=== PATIENT | female | born 1985 | race Two or more races ===

== ENCOUNTER 2016-11-22 11:42 | Inpatient (IN) | payer OTHER ==
[~2016-11-22] VITALS: Ht 162.6 cm; Wt 72.6 kg
[2016-11-22] VITALS (7 sets, daily range): BP systolic 105–129; BP diastolic 53–65
[2016-11-22] MEDS ORDERED: METFORMIN HCL1000 M1 ORAL (11:53)
[2016-11-22] MEDS ORDERED: GLIPIZIDE5 MG ORAL (11:53)
--- NOTE | 2016-11-22 12:06 | Emergency Room Report ---
History of Present Illness General Chief Complaint: General Complaint Source: Patient Present Illness HPI Patient presents with complaints of right-sided flank pain and increased dehydration Patient reports that she felt very weak over the past several days she has had increased burning with urination Patient reports that she has not taken her diabetic medications which include only pills over the past 6 months and has not been checking her glucose Denies any lower abdominal pain Denies any neck pain or photophobia Allergies: Coded Allergies: AMOXICILLIN (Verified Allergy, Unknown, 11/22/16) Patient History Past Medical History: see triage record Pertinent Family History: none Last Menstrual Period: 11/20/16 Reviewed Nursing Documentation: PMH: Agreed, PSxH: Agreed Nursing Documentation-PMH Past Medical History: No History, Except For Hx Diabetes: Yes Review of Systems All Other Systems: negative except mentioned in HPI Physical Exam Vital Signs Date Time Temp Pulse Resp B/P (MAP) Pulse Ox O2 Delivery O2 Flow Rate FiO2 11/22/16 11:49 100.0 128 19 110/68 98 Room Air Sp02 EP Interpretation: reviewed, normal General Appearance: mild distress - appears uncomfortable Head: normocephalic, atraumatic Eyes: bilateral eye PERRL, bilateral eye EOMI ENT: hearing grossly normal, TMs + canals normal, uvula midline, dry mucus membranes Neck: full range of motion, supple, no meningismus, no bony tend Respiratory: lungs clear, normal breath sounds, no rhonchi, no respiratory distress, no retraction, no accessory muscle use Cardiovascular #1: normal peripheral pulses, no edema, no gallop, no JVD, no murmur, tachycardia Gastrointestinal: normal bowel sounds, non tender, soft, no mass, no organomegaly, non-distended, no guarding, no hernia, no pulsatile mass, no rebound Genitourinary: CVA tenderness (R) Musculoskeletal: normal inspection Neurologic: oriented x3, responsive, corporate strategist III-XII nml as tested, motor strength/ tone normal, sensory intact Psychiatric: mood/affect normal Skin: normal color, no rash, warm/dry, palpation normal Lymphatic: normal inspection, no adenopathy Medical Decision Making Diagnostic Impression: Primary Impression: UTI (urinary tract infection) Additional Impressions: Sepsis Hyperglycemia ER Course Multiple differentials including but not limited to pyelonephritis, DKA, hyperglycemia without DKA considered Patient has aggressive IV hydration performed Antibiotics are provided Patient also was provided with IV insulin Patient does not show any obvious signs of acidosis therefore drip has not been performed Patient however is complex with source of infection and uncontrolled diabetes Tachycardic and consideration for sepsis and requires inpatient admission Labs Test 11/22/16 09:30 11/22/16 12:50 11/22/16 16:30 11/22/16 22:05 White Blood Count 18.9 K/UL (4.8-10.8) Red Blood Count 5.29 M/UL (4.20-5.40) Hemoglobin 15.7 G/DL (12.0-16.0) Hematocrit 47.5 % (37.0-47.0) Mean Corpuscular Volume 90 FL (80-99) Mean Corpuscular Hemoglobin 29.7 PG (27.0-31.0) Mean Corpuscular Hemoglobin Concent 33.1 G/DL (32.0-36.0) Red Cell Distribution Width 11.3 % (11.6-14.8) Platelet Count 352 K/UL (150-450) Mean Platelet Volume 7.6 FL (6.5-10.1) Neutrophils (%) (Auto) % (45.0-75.0) Lymphocytes (%) (Auto) % (20.0-45.0) Monocytes (%) (Auto) % (1.0-10.0) Eosinophils (%) (Auto) % (0.0-3.0) Basophils (%) (Auto) % (0.0-2.0) Differential Total Cells Counted 100 Neutrophils % (Manual) 86 % (45-75) Lymphocytes % (Manual) 7 % (20-45) Monocytes % (Manual) 6 % (1-10) Eosinophils % (Manual) 0 % (0-3) Basophils % (Manual) 1 % (0-2) Band Neutrophils 0 % (0-8) Platelet Estimate Adequate Platelet Morphology Normal Sodium Level 130 mEQ/L (135-145) Potassium Level 4.3 mEQ/L (3.4-4.9) Chloride Level 85 mEQ/L (98-107) Carbon Dioxide Level 24 mEQ/L (20-30) Anion Gap 21 (5-15) Blood Urea Nitrogen 10 mg/dL (7-23) Creatinine 0.9 mg/dL (0.5-0.9) Estimat Glomerular Filtration Rate > 60 mL/min (>60) Glucose Level 528 mg/dL (74-106) 563 mg/dL (74-106) Lactic Acid Level 2.00 mmol/L (0.66-2.22) 1.50 mmol/L (0.66-2.22) Calcium Level 9.9 mg/dL (8.6-10.2) Urine Color Pale yellow Urine Appearance Very cloudy Urine pH 5 (4.5-8.0) Urine Specific [place] 1.005 (1.005-1.035) Urine Protein 2+ (NEGATIVE) Urine Glucose (UA) 4+ (NEGATIVE) Urine Ketones 4+ (NEGATIVE) Urine Occult Blood 5+ (NEGATIVE) Urine Nitrite Negative (NEGATIVE) Urine Bilirubin Negative (NEGATIVE) Urine Urobilinogen Normal MG/DL (0.0-1.0) Urine Leukocyte Esterase 3+ (NEGATIVE) Urine RBC 10-15 /HPF (0 - 2) Urine WBC 40-60 /HPF (0 - 2) Urine Squamous Epithelial Cells Few /LPF (NONE/OCC) Urine Bacteria Few /HPF (NONE) Urine Yeast Few /HPF (NONE) Urine HCG, Qualitative Negative Test 11/23/16 02:00 11/23/16 04:20 White Blood Count 15.4 K/UL (4.8-10.8) Red Blood Count 4.34 M/UL (4.20-5.40) Hemoglobin 12.7 G/DL (12.0-16.0) Hematocrit 38.2 % (37.0-47.0) Mean Corpuscular Volume 88 FL (80-99) Mean Corpuscular Hemoglobin 29.3 PG (27.0-31.0) Mean Corpuscular Hemoglobin Concent 33.2 G/DL (32.0-36.0) Red Cell Distribution Width 11.4 % (11.6-14.8) Platelet Count 275 K/UL (150-450) Mean Platelet Volume 8.1 FL (6.5-10.1) Neutrophils (%) (Auto) 82.9 % (45.0-75.0) Lymphocytes (%) (Auto) 7.6 % (20.0-45.0) Monocytes (%) (Auto) 8.8 % (1.0-10.0) Eosinophils (%) (Auto) 0.0 % (0.0-3.0) Basophils (%) (Auto) 0.6 % (0.0-2.0) Lactic Acid Level 1.00 mmol/L (0.66-2.22) Urine Color Pale yellow Urine Appearance Cloudy Urine pH 6 (4.5-8.0) Urine Specific [place] 1.015 (1.005-1.035) Urine Protein 2+ (NEGATIVE) Urine Glucose (UA) 4+ (NEGATIVE) Urine Ketones 4+ (NEGATIVE) Urine Occult Blood 5+ (NEGATIVE) Urine Nitrite Negative (NEGATIVE) Urine Bilirubin Negative (NEGATIVE) Urine Urobilinogen 1 MG/DL (0.0-1.0) Urine Leukocyte Esterase 3+ (NEGATIVE) Urine RBC 15-20 /HPF (0 - 2) Urine WBC Tntc /HPF (0 - 2) Urine Squamous Epithelial Cells Few /LPF (NONE/OCC) Urine Bacteria Few /HPF (NONE) Labs Test 11/22/16 09:30 11/22/16 12:50 White Blood Count 18.9 K/UL (4.8-10.8) Red Blood Count 5.29 M/UL (4.20-5.40) Hemoglobin 15.7 G/DL (12.0-16.0) Hematocrit 47.5 % (37.0-47.0) Mean Corpuscular Volume 90 FL (80-99) Mean Corpuscular Hemoglobin 29.7 PG (27.0-31.0) Mean Corpuscular Hemoglobin Concent 33.1 G/DL (32.0-36.0) Red Cell Distribution Width 11.3 % (11.6-14.8) Platelet Count 352 K/UL (150-450) Mean Platelet Volume 7.6 FL (6.5-10.1) Neutrophils (%) (Auto) % (45.0-75.0) Lymphocytes (%) (Auto) % (20.0-45.0) Monocytes (%) (Auto) % (1.0-10.0) Eosinophils (%) (Auto) % (0.0-3.0) Basophils (%) (Auto) % (0.0-2.0) Sodium Level 130 mEQ/L (135-145) Potassium Level 4.3 mEQ/L (3.4-4.9) Chloride Level 85 mEQ/L (98-107) Carbon Dioxide Level 24 mEQ/L (20-30) Anion Gap 21 (5-15) Blood Urea Nitrogen 10 mg/dL (7-23) Creatinine 0.9 mg/dL (0.5-0.9) Estimat Glomerular Filtration Rate > 60 mL/min (>60) Glucose Level 528 mg/dL (74-106) Calcium Level 9.9 mg/dL (8.6-10.2) Rhythm Strip Diag. Results EP Interpretation: yes Rate: 115 Rhythm: no PVC's, no ectopy, other - sinus tach Last Vital Signs Date Time Temp Pulse Resp B/P (MAP) Pulse Ox O2 Delivery O2 Flow Rate FiO2 11/22/16 11:49 100.0 128 19 110/68 98 Room Air Status: improved Disposition: ADMITTED INPATIENT Condition: Serious STEPHANIE SILVA D.O. Nov 22, 2016 12:06
[2016-11-22] MEDS ORDERED: Ketorolac 30mg Inj IV ONE (12:15)
[2016-11-22 12:41] LABS: MEAN CORPUSCULAR HEMOGLOBIN 29.7 PG (27.0-31.0); MEAN CORPUSCULAR HGB CONC 33.1 G/DL (32.0-36.0); MEAN CORPUSCULAR VOLUME 90 FL (80-99); MEAN PLATELET VOLUME 7.6 FL (6.5-10.1); PLATELET COUNT 352 K/UL (150-450); RED BLOOD COUNT 5.29 M/UL (4.20-5.40); RED CELL DISTRIBUTION WIDTH 11.3 % (11.6-14.8); WHITE BLOOD COUNT 18.9 K/UL (4.8-10.8)
[2016-11-22 13:04] LABS: ANION GAP 21 (5-15); CALCIUM 9.9 mg/dL (8.6-10.2); CARBON DIOXIDE 24 mEQ/L (20-30); CHLORIDE 85 mEQ/L (98-107); CREATININE 0.9 mg/dL (0.5-0.9); GLOMERULAR FILTRATION RATE > 60 mL/min (>60); HEMOLYSIS 1; POTASSIUM 4.3 mEQ/L (3.4-4.9); SODIUM 130 mEQ/L (135-145)
[2016-11-22] MEDS ORDERED: Clindamycin 600mg 50 ML IVPB ONE (13:15)
[2016-11-22 14:11] LABS: APPEARANCE,URINE VERY CLOUDY; KETONES,URINE 4+ (NEGATIVE); LEUKOCYTE ESTERASE ,URINE 3+ (NEGATIVE); NITRITE,URINE NEGATIVE (NEGATIVE); PH,URINE 5 (4.5-8.0); PROTEIN,URINE 2+ (NEGATIVE); UROBILINOGEN,URINE NORMAL MG/DL (0.0-1.0)
[2016-11-22 14:15] LABS: BACTERIA,URINE FEW /HPF; SQUAMOUS EPITHELIAL CELL,UR FEW /LPF (NONE/OCC); WBC,URINE 40-60 /HPF (0 - 2); YEAST,URINE FEW /HPF
[2016-11-22 14:36] LABS: BAND NEUTROPHILS % (MANUAL) 0 % (0-8); BASOPHILS % (MANUAL) 1 % (0-2); EOSINOPHILS % (MANUAL) 0 % (0-3); LYMPHOCYTES % (MANUAL) 7 % (20-45); NEUTROPHILS % (MANUAL) 86 % (45-75); PLATELET ESTIMATE ADEQUATE; PLATELET MORPHOLOGY NORMAL; TOTAL CELLS COUNTED 100
[2016-11-22] MEDS ORDERED: Acetaminophen 500mg (ES) tab ORAL ONE (15:00)
[2016-11-22] MEDS ORDERED: Bactrim DS (160mg/800mg) tab ORAL ONE (15:00)
[2016-11-22 15:56] LABS: REFLEX LACTIC ACID YES OR NO YES
[2016-11-22] MEDS: Morphine Sulfate 2mg/ml Inj IVP PRN (20:17)
[2016-11-22] MEDS: NovoLOG Insulin Flexpen SUBQ SCH (21:46)
[2016-11-22] MEDS ORDERED: Levemir Flexpen SUBQ SCH (23:30)
[2016-11-23] VITALS (7 sets, daily range): BP systolic 117–141; BP diastolic 65–77
[2016-11-23 02:14] LABS: BASOPHILS % (AUTO) 0.6 % (0.0-2.0); LYMPHOCYTES % (AUTO) 7.6 % (20.0-45.0); MEAN CORPUSCULAR HEMOGLOBIN 29.3 PG (27.0-31.0); MEAN CORPUSCULAR HGB CONC 33.2 G/DL (32.0-36.0); MEAN CORPUSCULAR VOLUME 88 FL (80-99); MEAN PLATELET VOLUME 8.1 FL (6.5-10.1); MONOCYTES % (AUTO) 8.8 % (1.0-10.0); NEUTROPHILS % (AUTO) 82.9 % (45.0-75.0); PLATELET COUNT 275 K/UL (150-450); RED BLOOD COUNT 4.34 M/UL (4.20-5.40); RED CELL DISTRIBUTION WIDTH 11.4 % (11.6-14.8); WHITE BLOOD COUNT 15.4 K/UL (4.8-10.8)
[2016-11-23 05:01] LABS: KETONES,URINE 4+ (NEGATIVE); LEUKOCYTE ESTERASE ,URINE 3+ (NEGATIVE); NITRITE,URINE NEGATIVE (NEGATIVE); PH,URINE 6 (4.5-8.0); PROTEIN,URINE 2+ (NEGATIVE); UROBILINOGEN,URINE 1 MG/DL (0.0-1.0)
[2016-11-23 05:13] LABS: APPEARANCE,URINE CLOUDY
[2016-11-23 05:14] LABS: BACTERIA,URINE FEW /HPF; RBC,URINE 15-20 /HPF (0 - 2); SQUAMOUS EPITHELIAL CELL,UR FEW /LPF (NONE/OCC); WBC,URINE TNTC /HPF (0 - 2)
[2016-11-23] MEDS: NovoLOG Insulin Flexpen SUBQ SCH ×4 (06:48→21:24)
[2016-11-23] MEDS: Morphine Sulfate 2mg/ml Inj IVP PRN ×4 (08:36→23:21)
[2016-11-23] MEDS ORDERED: Levemir Flexpen SUBQ SCH (09:00)
[2016-11-23 10:42] LABS: BASOPHILS % (AUTO) 0.5 % (0.0-2.0); LYMPHOCYTES % (AUTO) 9.8 % (20.0-45.0); MEAN CORPUSCULAR HEMOGLOBIN 29.5 PG (27.0-31.0); MEAN CORPUSCULAR HGB CONC 33.1 G/DL (32.0-36.0); MEAN CORPUSCULAR VOLUME 89 FL (80-99); MEAN PLATELET VOLUME 7.7 FL (6.5-10.1); NEUTROPHILS % (AUTO) 82.6 % (45.0-75.0); PLATELET COUNT 296 K/UL (150-450); RED BLOOD COUNT 4.38 M/UL (4.20-5.40); RED CELL DISTRIBUTION WIDTH 11.2 % (11.6-14.8); WHITE BLOOD COUNT 14.2 K/UL (4.8-10.8)
[2016-11-23 10:57] LABS: ANION GAP 13 (5-15); CALCIUM 8.3 mg/dL (8.6-10.2); CARBON DIOXIDE 22 mEQ/L (20-30); CHLORIDE 94 mEQ/L (98-107); CREATININE 0.7 mg/dL (0.5-0.9); GLOMERULAR FILTRATION RATE > 60 mL/min (>60); HEMOLYSIS 0; SODIUM 129 mEQ/L (135-145)
[2016-11-23] MEDS: Aztreonam Inj 1 GM in D5W 55 ML IVPB SCH ×2 (13:21→21:58)
--- NOTE | 2016-11-23 13:23 | Infectious Diseases Prog Note ---
Assessment/Plan Problems: (1) Pyelonephritis Assessment & Plan: continue aztreonam, pending blood culture results (2) Sepsis Assessment & Plan: with gram negative rods, on aztreonam , pending identification and sensitivity (3) Hyperglycemia Assessment & Plan: due to sepsis, recommend tight glycemic control to keep blood glucose between 80-120 Subjective Allergies: Coded Allergies: AMOXICILLIN (Verified Allergy, Unknown, 11/22/16) Objective Vital Signs Last 24 Hour Vital Signs Date Time Temp Pulse Resp B/P (MAP) Pulse Ox O2 Delivery O2 Flow Rate FiO2 11/23/16 12:00 98.4 124 21 141/73 97 Room Air 11/23/16 08:00 116 11/23/16 08:00 101.5 120 20 121/67 98 Room Air 11/23/16 04:00 100.9 120 18 126/65 96 Room Air 11/23/16 03:47 116 11/23/16 01:30 101.8 Room Air 11/23/16 00:00 103.1 129 18 136/67 96 Room Air 11/22/16 23:50 131 11/22/16 20:00 100.0 116 20 118/64 94 Room Air 11/22/16 19:05 110 11/22/16 17:36 99.5 62 18 118/62 99 Room Air 11/22/16 17:15 117 20 110/58 100 Room Air 11/22/16 16:01 100.4 118 16 127/63 100 Room Air 11/22/16 16:01 100.4 11/22/16 15:26 102.4 118 16 127/63 100 Room Air 11/22/16 14:47 101.4 113 20 129/65 98 Room Air Height (Feet): 5 Height (Inches): 4.00 Weight (Pounds): 160 Microbiology Date/Time Source Procedure Growth Status 11/22/16 09:30 Blood Blood Culture - Preliminary Gram Negative [place] Resulted 11/22/16 09:30 Blood Blood Culture - Preliminary Gram Negative [place] Resulted 11/22/16 12:50 Urine,Clean Catch Urine Culture - Preliminary Resulted Laboratory Tests Test 11/22/16 16:30 11/22/16 22:05 11/23/16 02:00 11/23/16 04:20 Lactic Acid Level 1.50 mmol/L (0.66-2.22) 1.00 mmol/L (0.66-2.22) Glucose Level 563 mg/dL (74-106) *H White Blood Count 15.4 K/UL (4.8-10.8) H Red Blood Count 4.34 M/UL (4.20-5.40) Hemoglobin 12.7 G/DL (12.0-16.0) Hematocrit 38.2 % (37.0-47.0) Mean Corpuscular Volume 88 FL (80-99) Mean Corpuscular Hemoglobin 29.3 PG (27.0-31.0) Mean Corpuscular Hemoglobin Concent 33.2 G/DL (32.0-36.0) Red Cell Distribution Width 11.4 % (11.6-14.8) L Platelet Count 275 K/UL (150-450) Mean Platelet Volume 8.1 FL (6.5-10.1) Neutrophils (%) (Auto) 82.9 % (45.0-75.0) H Lymphocytes (%) (Auto) 7.6 % (20.0-45.0) L Monocytes (%) (Auto) 8.8 % (1.0-10.0) Eosinophils (%) (Auto) 0.0 % (0.0-3.0) Basophils (%) (Auto) 0.6 % (0.0-2.0) Urine Color Pale yellow Urine Appearance Cloudy Urine pH 6 (4.5-8.0) Urine Specific [place] 1.015 (1.005-1.035) Urine Protein 2+ (NEGATIVE) H Urine Glucose (UA) 4+ (NEGATIVE) H Urine Ketones 4+ (NEGATIVE) H Urine Occult Blood 5+ (NEGATIVE) H Urine Nitrite Negative (NEGATIVE) Urine Bilirubin Negative (NEGATIVE) Urine Urobilinogen 1 MG/DL (0.0-1.0) H Urine Leukocyte Esterase 3+ (NEGATIVE) H Urine RBC 15-20 /HPF (0 - 2) H Urine WBC Tntc /HPF (0 - 2) H Urine Squamous Epithelial Cells Few /LPF (NONE/OCC) Urine Bacteria Few /HPF (NONE) Test 11/23/16 10:05 White Blood Count 14.2 K/UL (4.8-10.8) H Red Blood Count 4.38 M/UL (4.20-5.40) Hemoglobin 12.9 G/DL (12.0-16.0) Hematocrit 39.0 % (37.0-47.0) Mean Corpuscular Volume 89 FL (80-99) Mean Corpuscular Hemoglobin 29.5 PG (27.0-31.0) Mean Corpuscular Hemoglobin Concent 33.1 G/DL (32.0-36.0) Red Cell Distribution Width 11.2 % (11.6-14.8) L Platelet Count 296 K/UL (150-450) Mean Platelet Volume 7.7 FL (6.5-10.1) Neutrophils (%) (Auto) 82.6 % (45.0-75.0) H Lymphocytes (%) (Auto) 9.8 % (20.0-45.0) L Monocytes (%) (Auto) 7.0 % (1.0-10.0) Eosinophils (%) (Auto) 0.0 % (0.0-3.0) Basophils (%) (Auto) 0.5 % (0.0-2.0) Sodium Level 129 mEQ/L (135-145) L Potassium Level 4.0 mEQ/L (3.4-4.9) Chloride Level 94 mEQ/L (98-107) L Carbon Dioxide Level 22 mEQ/L (20-30) Anion Gap 13 (5-15) Blood Urea Nitrogen 11 mg/dL (7-23) Creatinine 0.7 mg/dL (0.5-0.9) Estimat Glomerular Filtration Rate > 60 mL/min (>60) Glucose Level 395 mg/dL (74-106) #H Calcium Level 8.3 mg/dL (8.6-10.2) L Current Medications Medications (Trade) Dose Ordered Sig/Brisa Route PRN Reason Start Time Stop Time Status Last Admin Dose Admin Acetaminophen (Tylenol) 500 mg Q6H PRN ORAL Mild Pain/Temp > 100.5 11/23/16 11:00 12/23/16 10:59 Aztreonam 1 gm/ Dextrose 55 ml @ 110 mls/hr Q8HR IVPB 11/23/16 14:00 11/30/16 13:59 Dextrose (Dextrose 50%) STAT PRN IV Hypoglycemia 11/22/16 18:30 12/22/16 18:29 Insulin Aspart (NovoLOG) BEFORE MEALS AND HS SUBQ 9/30/17 21:00 12/22/16 20:59 11/23/16 12:13 Insulin Detemir (Levemir) 15 units BID SUBQ 11/23/16 18:00 12/23/16 17:59 Morphine Sulfate (Morphine Sulfate) 2 mg Q4H PRN IVP Severe Pain (Pain Scale 7-10) 11/22/16 18:30 11/29/16 18:29 11/23/16 08:36 Ondansetron HCl (Zofran) 4 mg Q6H PRN IVP Nausea & Vomiting 11/22/16 18:30 12/22/16 18:29 Sodium Chloride 1,000 ml @ 100 mls/hr Q10H IVLG 11/22/16 18:45 12/22/16 18:44 11/23/16 06:38 Jeanie Borjas M.D. Nov 23, 2016 13:23
[2016-11-23] MEDS ORDERED: Tubing IV Secondary IV ONE (15:38)
[2016-11-23] MEDS: Levemir Flexpen SUBQ SCH (18:00)
[2016-11-23] MEDS: Acetaminophen 500mg (ES) tab ORAL PRN (21:19)
--- NOTE | 2016-11-23 22:45 | Consultation ---
DATE OF CONSULTATION: INFECTIOUS DISEASES CONSULTATION CONSULTING PHYSICIAN: Jeanie Borjas M.D. REQUESTING PHYSICIAN: Tylor Singh M.D. Reason For Consultation: Sepsis and acute pyelonephritis with gram-negative rods. Recommendation for antibiotics treatment. History Of Present Illness: The patient is a 31-year-old female with no significant past medical history except poorly controlled diabetes, who stopped taking her oral diabetes medicine for couple of weeks ago since she ran out of them, presented to the emergency room at [facility] with significant right-sided flank pain and fever with chills. She had also dysuria, but no hematuria. She had noticed increased burning with urination, so she was directed to the emergency room for further evaluation and management. In the emergency room, the patient was found to have fever of 100 degrees. She also had significant leukocytosis suspicious for sepsis. Urinalysis showed also significant infection, suspicious for pyelonephritis. So, I was consulted by the primary provider for antibiotics choice since she has allergy to penicillin and further management. Past Medical History: Significant for poorly controlled diabetes, not on any oral medication. PAST SURGICAL HISTORY: Negative. Medications: The patient was started on aztreonam. For the rest of her medications, please refer to MAR. Allergies: She is allergic to amoxicillin since childhood. She does not know what kind of reaction she has. Social History: The patient lives with her . Unemployed. No recent drugs, tobacco, or alcohol. FAMILY HISTORY: Not contributory. Review Of Systems: A 14-point of system reviewed were all negative apart from the one I mentioned above in my History and Physical. PHYSICAL EXAMINATION: Vital Signs: Temperature 101.5 degrees, pulse 120, respirations 20, blood pressure 121/67, and saturation 98% on room air. General: A young female, lying in bed, feeling hot, awake, alert, not in distress, at the bedside. HEENT: Normocephalic and atraumatic. Pupils are reactive to light. Moist oral mucosa. NECK: Supple. No lymphadenopathy. CARDIOVASCULAR: She is tachycardic. S1 and S2 normal. No murmur. Lungs: Clear bilaterally. No wheezing or rhonchi. Normal breathing sounds. Abdomen: Soft. Tender on the right side, mainly in the flank area. No rebound. No organomegaly. No ascites. EXTREMITIES: No edema or cyanosis. SKIN: No rash or hives. BACK: She had right CVA tenderness. Laboratory Data: Labs showed white count of 14.2, hemoglobin of 12.9, and platelet count of 296,000. BUN of 11 and creatinine of 0.7. Urinalysis showed negative nitrite, leukocyte esterase +3, WBC 40 to 60, and few urine yeast. MICROBIOLOGY: Blood culture x2 is growing gram-negative rods. ASSESSMENT/RECOMMENDATIONS: 1. Acute pyelonephritis. Continue aztreonam empiric treatment for now pending blood culture and urine culture results. We will order renal ultrasound to rule out abscess or obstruction. 2. Sepsis with gram-negative rods, suspect due to pyelonephritis. Continue aztreonam empiric treatment pending identification and sensitivity. 3. Hyperglycemia due to poorly controlled diabetes and sepsis. Recommend tight glycemic control to keep blood glucose between 80 to 120. 4. Diabetes, poorly controlled. Recommend counseling and dietitian consultation. Jeanie Borjas M.D. DR: TONY JOB#: [id number] CC:
--- NOTE | 2016-11-23 23:47 | History and Physical ---
History of Present Illness General Date patient seen: Nov 23, 2016 Reason for Hospitalization: General Complaint Present Illness Allergies: Coded Allergies: AMOXICILLIN (Verified Allergy, Unknown, 11/22/16) Medication History Scheduled Glipizide* (Glipizide*), 5 MG ORAL BIDAC, (Reported) Metformin Hcl* (Metformin Hcl*), 1,000 MG ORAL BID, (Reported) Patient History Healthcare decision maker Resuscitation status Full Code Advanced Directive on File Physical Exam Last 24 Hour Vital Signs Date Time Temp Pulse Resp B/P (MAP) Pulse Ox O2 Delivery O2 Flow Rate FiO2 11/23/16 23:06 99.1 93 20 117/74 99 Room Air 11/23/16 22:18 97.7 11/23/16 20:00 101.7 117 20 137/77 95 Room Air 11/23/16 19:00 125 11/23/16 16:00 114 11/23/16 16:00 98.6 110 21 120/69 97 Room Air 11/23/16 12:00 98.4 124 21 141/73 97 Room Air 11/23/16 12:00 122 11/23/16 08:00 116 11/23/16 08:00 101.5 120 20 121/67 98 Room Air 11/23/16 04:00 100.9 120 18 126/65 96 Room Air 11/23/16 03:47 116 11/23/16 01:30 101.8 Room Air 11/23/16 00:00 103.1 129 18 136/67 96 Room Air 11/22/16 23:50 131 Intake and Output 11/23/16 11/24/16 19:00 07:00 Intake Total 1210 ml 300 ml Balance 1210 ml 300 ml Intake Oral 600 ml IV Total 610 ml 300 ml # Voids 1 Laboratory Tests Test 11/23/16 02:00 11/23/16 04:20 11/23/16 10:05 White Blood Count 15.4 K/UL (4.8-10.8) H 14.2 K/UL (4.8-10.8) H Red Blood Count 4.34 M/UL (4.20-5.40) 4.38 M/UL (4.20-5.40) Hemoglobin 12.7 G/DL (12.0-16.0) 12.9 G/DL (12.0-16.0) Hematocrit 38.2 % (37.0-47.0) 39.0 % (37.0-47.0) Mean Corpuscular Volume 88 FL (80-99) 89 FL (80-99) Mean Corpuscular Hemoglobin 29.3 PG (27.0-31.0) 29.5 PG (27.0-31.0) Mean Corpuscular Hemoglobin Concent 33.2 G/DL (32.0-36.0) 33.1 G/DL (32.0-36.0) Red Cell Distribution Width 11.4 % (11.6-14.8) L 11.2 % (11.6-14.8) L Platelet Count 275 K/UL (150-450) 296 K/UL (150-450) Mean Platelet Volume 8.1 FL (6.5-10.1) 7.7 FL (6.5-10.1) Neutrophils (%) (Auto) 82.9 % (45.0-75.0) H 82.6 % (45.0-75.0) H Lymphocytes (%) (Auto) 7.6 % (20.0-45.0) L 9.8 % (20.0-45.0) L Monocytes (%) (Auto) 8.8 % (1.0-10.0) 7.0 % (1.0-10.0) Eosinophils (%) (Auto) 0.0 % (0.0-3.0) 0.0 % (0.0-3.0) Basophils (%) (Auto) 0.6 % (0.0-2.0) 0.5 % (0.0-2.0) Lactic Acid Level 1.00 mmol/L (0.66-2.22) Urine Color Pale yellow Urine Appearance Cloudy Urine pH 6 (4.5-8.0) Urine Specific [place] 1.015 (1.005-1.035) Urine Protein 2+ (NEGATIVE) H Urine Glucose (UA) 4+ (NEGATIVE) H Urine Ketones 4+ (NEGATIVE) H Urine Occult Blood 5+ (NEGATIVE) H Urine Nitrite Negative (NEGATIVE) Urine Bilirubin Negative (NEGATIVE) Urine Urobilinogen 1 MG/DL (0.0-1.0) H Urine Leukocyte Esterase 3+ (NEGATIVE) H Urine RBC 15-20 /HPF (0 - 2) H Urine WBC Tntc /HPF (0 - 2) H Urine Squamous Epithelial Cells Few /LPF (NONE/OCC) Urine Bacteria Few /HPF (NONE) Sodium Level 129 mEQ/L (135-145) L Potassium Level 4.0 mEQ/L (3.4-4.9) Chloride Level 94 mEQ/L (98-107) L Carbon Dioxide Level 22 mEQ/L (20-30) Anion Gap 13 (5-15) Blood Urea Nitrogen 11 mg/dL (7-23) Creatinine 0.7 mg/dL (0.5-0.9) Estimat Glomerular Filtration Rate > 60 mL/min (>60) Glucose Level 395 mg/dL (74-106) #H Calcium Level 8.3 mg/dL (8.6-10.2) L Height (Feet): 5 Height (Inches): 4.00 Weight (Pounds): 160 Medications Current Medications Medications (Trade) Dose Ordered Sig/Brisa Route PRN Reason Start Time Stop Time Status Last Admin Dose Admin Acetaminophen (Tylenol) 500 mg Q6H PRN ORAL Mild Pain/Temp > 100.5 11/23/16 11:00 12/23/16 10:59 11/23/16 21:19 Aztreonam 1 gm/ Dextrose 55 ml @ 110 mls/hr Q8HR IVPB 11/23/16 14:00 11/30/16 13:59 11/23/16 21:58 Dextrose (Dextrose 50%) STAT PRN IV Hypoglycemia 11/22/16 18:30 12/22/16 18:29 Insulin Aspart (NovoLOG) BEFORE MEALS AND HS SUBQ 11/22/16 21:00 12/22/16 20:59 11/23/16 21:24 Insulin Detemir (Levemir) 15 units BID SUBQ 11/23/16 18:00 12/23/16 17:59 11/23/16 18:00 Morphine Sulfate (Morphine Sulfate) 2 mg Q4H PRN IVP Severe Pain (Pain Scale 7-10) 11/22/16 18:30 11/29/16 18:29 11/23/16 23:21 Ondansetron HCl (Zofran) 4 mg Q6H PRN IVP Nausea & Vomiting 11/22/16 18:30 12/22/16 18:29 Sodium Chloride 1,000 ml @ 100 mls/hr Q10H IVLG 11/22/16 18:45 12/22/16 18:44 11/23/16 21:52 JAQUI VELASCO Nov 23, 2016 23:47
[2016-11-24 04:29] VITALS: BP 117/76
[2016-11-24] MEDS: Aztreonam Inj 1 GM in D5W 55 ML IVPB SCH ×3 (05:48→22:10)
[2016-11-24] MEDS: Morphine Sulfate 2mg/ml Inj IVP PRN ×4 (05:48→20:06)
[2016-11-24] MEDS: NovoLOG Insulin Flexpen SUBQ SCH ×4 (06:07→21:00)
[2016-11-24 08:00] VITALS: BP 116/79
[2016-11-24] MEDS: Levemir Flexpen SUBQ SCH ×2 (08:31→18:28)
[2016-11-24] MEDS ORDERED: NS 275ml ONE (10:18)
[2016-11-24] MEDS ORDERED: Tubing IV Secondary IV ONE (10:18)
[2016-11-24] MEDS ORDERED: Flu Vaccine Quadrivalent 0.5ml IM ONE (11:40)
[2016-11-24 12:00] VITALS: BP 136/84
[2016-11-24] MEDS: Docusate 100mg cap ORAL SCH ×2 (13:54→18:19)
[2016-11-24 16:00] VITALS: BP 124/79
--- NOTE | 2016-11-24 17:10 | Infectious Diseases Prog Note ---
Assessment/Plan Problems: (1) Pyelonephritis Assessment & Plan: with gram negative rods, continue aztreonam, pending further culture results (2) Sepsis Assessment & Plan: with gram negative rods, due to the above , on aztreonam , pending identification and sensitivity (3) Hyperglycemia Assessment & Plan: due to sepsis, recommend tight glycemic control to keep blood glucose between 80-120 Subjective Constitutional: Reports: fever HEENT: Reports: no symptoms Respiratory: Reports: no symptoms Breasts: Reports: no symptoms Gastrointestinal/Abdominal: Reports: other - flank pain Genitourinary: Reports: no symptoms Neurologic: Reports: no symptoms Psychiatric: Reports: no symptoms Skin: Reports: no symptoms Endocrine: Reports: no symptoms Allergies: Coded Allergies: AMOXICILLIN (Verified Allergy, Unknown, 11/22/16) Objective Vital Signs Last 24 Hour Vital Signs Date Time Temp Pulse Resp B/P (MAP) Pulse Ox O2 Delivery O2 Flow Rate FiO2 11/24/16 16:00 101.1 94 19 124/79 99 Room Air 11/24/16 12:00 112 11/24/16 12:00 99.0 96 19 136/84 97 Room Air 11/24/16 08:00 118 11/24/16 08:00 98.6 91 20 116/79 98 Room Air 11/24/16 04:29 98.6 89 20 117/76 100 Room Air 11/24/16 04:13 87 11/23/16 23:39 84 11/23/16 23:06 99.1 93 20 117/74 99 Room Air 11/23/16 22:18 97.7 11/23/16 20:00 101.7 117 20 137/77 95 Room Air 11/23/16 19:00 125 Height (Feet): 5 Height (Inches): 4.00 Weight (Pounds): 160 General Appearance: WD/WN, no acute distress HEENT: normocephalic, atraumatic, anicteric, mucous membranes moist Respiratory/Chest: chest wall non-tender, lungs clear, normal breath sounds, no respiratory distress, no accessory muscle use Cardiovascular: normal peripheral pulses, normal rate, regular rhythm, no gallop/murmur, no JVD Abdomen: normal bowel sounds, no organomegaly, non distended, no mass, tender Extremities: no cyanosis, no clubbing Skin: no rash, no lesions Microbiology Date/Time Source Procedure Growth Status 11/23/16 02:00 Blood Blood Culture - Preliminary Resulted 11/23/16 01:50 Blood Blood Culture - Preliminary Resulted 11/22/16 09:30 Blood Blood Culture - Preliminary Gram Negative Bacillus 1 Resulted 11/22/16 09:30 Blood Blood Culture - Preliminary Gram Negative Bacillus 1 Resulted 11/23/16 04:20 Urine,Clean Catch Urine Culture - Preliminary NO GROWTH Resulted 11/22/16 12:50 Urine,Clean Catch Urine Culture - Preliminary Gram Negative Bacillus 1 Gram Negative Bacillus 2 Resulted Current Medications Medications (Trade) Dose Ordered Sig/Brisa Route PRN Reason Start Time Stop Time Status Last Admin Dose Admin Acetaminophen (Tylenol) 500 mg Q6H PRN ORAL Mild Pain/Temp > 100.5 11/23/16 11:00 12/23/16 10:59 11/23/16 21:19 Aztreonam 1 gm/ Dextrose 55 ml @ 110 mls/hr Q8HR IVPB 11/23/16 14:00 11/30/16 13:59 11/24/16 13:02 Dextrose (Dextrose 50%) STAT PRN IV Hypoglycemia 11/22/16 18:30 12/22/16 18:29 Docusate Sodium (Colace) 100 mg TWICE A DAY ORAL 11/24/16 13:45 12/24/16 13:44 11/24/16 13:54 Insulin Aspart (NovoLOG) BEFORE MEALS AND HS SUBQ 11/22/16 21:00 12/22/16 20:59 11/24/16 17:06 Insulin Detemir (Levemir) 15 units BID SUBQ 11/23/16 18:00 12/23/16 17:59 11/24/16 08:31 Morphine Sulfate (Morphine Sulfate) 2 mg Q4H PRN IVP Severe Pain (Pain Scale 7-10) 11/22/16 18:30 11/29/16 18:29 11/24/16 15:16 Ondansetron HCl (Zofran) 4 mg Q6H PRN IVP Nausea & Vomiting 11/22/16 18:30 12/22/16 18:29 Sodium Chloride 1,000 ml @ 100 mls/hr Q10H IVLG 11/22/16 18:45 12/22/16 18:44 11/24/16 10:45 Jeanie Borjas M.D. Nov 24, 2016 17:10
[2016-11-24] MEDS: Acetaminophen 500mg (ES) tab ORAL PRN (18:59)
[2016-11-24 20:00] VITALS: BP 130/68
--- NOTE | 2016-11-24 22:41 | Nephrology Progress Note ---
Assessment/Plan Problem List: (1) Hyponatremia (2) Hyperglycemia (3) Pyelonephritis (4) Sepsis (5) UTI (urinary tract infection) Plan Abx per ID Strict glycemic control Monitor temp Monitor counts Continue diabetic diet Continue IVF Monitor lytes, correct prn Objective Objective Last 24 Hour Vital Signs Date Time Temp Pulse Resp B/P (MAP) Pulse Ox O2 Delivery O2 Flow Rate FiO2 11/24/16 20:00 100.0 103 20 130/68 95 Room Air 11/24/16 17:44 106 11/24/16 16:00 101.1 94 19 124/79 99 Room Air 11/24/16 12:00 112 11/24/16 12:00 99.0 96 19 136/84 97 Room Air 11/24/16 08:00 118 11/24/16 08:00 98.6 91 20 116/79 98 Room Air 11/24/16 04:29 98.6 89 20 117/76 100 Room Air 11/24/16 04:13 87 11/23/16 23:39 84 11/23/16 23:06 99.1 93 20 117/74 99 Room Air Intake and Output 11/24/16 11/25/16 19:00 07:00 Intake Total 1390 ml Balance 1390 ml Intake Oral 780 ml IV Total 610 ml # Voids 5 # Bowel Movements 1 Height (Feet): 5 Height (Inches): 4.00 Weight (Pounds): 160 JAQUI VELASCO Nov 24, 2016 22:41
[2016-11-25] VITALS: BP 131/81
[2016-11-25] MEDS: Morphine Sulfate 2mg/ml Inj IVP PRN ×5 (00:19→18:46)
[2016-11-25 04:00] VITALS: BP 132/79
[2016-11-25] MEDS: Aztreonam Inj 1 GM in D5W 55 ML IVPB SCH ×2 (06:00→14:13)
[2016-11-25] MEDS: NovoLOG Insulin Flexpen SUBQ SCH ×4 (06:39→21:32)
[2016-11-25 08:00] VITALS: BP 137/79
[2016-11-25 08:24] LABS: EOSINOPHILS % (AUTO) 0.4 % (0.0-3.0); LYMPHOCYTES % (AUTO) 20.4 % (20.0-45.0); MEAN CORPUSCULAR HGB CONC 34.2 G/DL (32.0-36.0); MEAN CORPUSCULAR VOLUME 88 FL (80-99); MEAN PLATELET VOLUME 7.9 FL (6.5-10.1); MONOCYTES % (AUTO) 11.2 % (1.0-10.0); NEUTROPHILS % (AUTO) 66.9 % (45.0-75.0); PLATELET COUNT 269 K/UL (150-450); RED CELL DISTRIBUTION WIDTH 11.6 % (11.6-14.8); WHITE BLOOD COUNT 8.4 K/UL (4.8-10.8)
[2016-11-25] MEDS: Levemir Flexpen SUBQ SCH ×3 (08:53→21:29)
[2016-11-25 08:54] LABS: ANION GAP 12 (5-15); CALCIUM 8.2 mg/dL (8.6-10.2); CARBON DIOXIDE 24 mEQ/L (20-30); CHLORIDE 97 mEQ/L (98-107); CREATININE 0.6 mg/dL (0.5-0.9); GLOMERULAR FILTRATION RATE > 60 mL/min (>60); HEMOLYSIS 0; POTASSIUM 4.2 mEQ/L (3.4-4.9); SODIUM 133 mEQ/L (135-145)
[2016-11-25] MEDS: Docusate 100mg cap ORAL SCH ×2 (10:24→18:47)
[2016-11-25 12:00] VITALS: BP 129/56
[2016-11-25 16:00] VITALS: BP 123/46
--- NOTE | 2016-11-25 16:56 | Infectious Diseases Prog Note ---
Assessment/Plan Problems: (1) Pyelonephritis Assessment & Plan: with pansensitive E coli, will switch aztreonam to ceftriaxon , and treat for 2 weeks (2) Sepsis Assessment & Plan: with pansensitive E coli, , due to the above , on aztreonam , will switch to ceftriaxon for two weeks, and repeat blood culture to confirm clearance (3) Hyperglycemia Assessment & Plan: due to sepsis, recommend tight glycemic control to keep blood glucose between 80-120 Subjective Constitutional: Reports: no symptoms HEENT: Reports: no symptoms Respiratory: Reports: no symptoms Breasts: Reports: no symptoms Cardiovascular: Reports: no symptoms Gastrointestinal/Abdominal: Reports: no symptoms Genitourinary: Reports: no symptoms Neurologic: Reports: no symptoms Psychiatric: Reports: no symptoms Skin: Reports: no symptoms Endocrine: Reports: no symptoms Allergies: Coded Allergies: AMOXICILLIN (Verified Allergy, Unknown, 11/22/16) Objective Vital Signs Last 24 Hour Vital Signs Date Time Temp Pulse Resp B/P (MAP) Pulse Ox O2 Delivery O2 Flow Rate FiO2 11/25/16 12:00 96.8 93 20 129/56 98 Room Air 11/25/16 12:00 94 11/25/16 08:00 98.2 94 21 137/79 97 Room Air 11/25/16 08:00 102 11/25/16 08:00 102 11/25/16 05:04 98.0 11/25/16 04:00 98.0 93 20 132/79 97 Room Air 11/25/16 04:00 98 11/25/16 00:00 98.8 95 20 131/81 97 Room Air 11/25/16 00:00 98 11/24/16 20:00 100.0 103 20 130/68 95 Room Air 11/24/16 20:00 96 11/24/16 19:58 100.0 11/24/16 17:44 106 Height (Feet): 5 Height (Inches): 4.00 Weight (Pounds): 160 General Appearance: WD/WN, no acute distress HEENT: normocephalic, atraumatic, anicteric, mucous membranes moist Respiratory/Chest: chest wall non-tender, lungs clear, normal breath sounds, no respiratory distress, no accessory muscle use Cardiovascular: normal peripheral pulses, normal rate, regular rhythm, no gallop/murmur, no JVD Abdomen: normal bowel sounds, soft, non tender, no organomegaly, non distended , no mass, no scars Extremities: no cyanosis, no clubbing Skin: no rash, no lesions, no ulcers Microbiology Date/Time Source Procedure Growth Status 11/23/16 02:00 Blood Blood Culture - Preliminary Gram Negative Bacillus 1 Resulted 11/23/16 01:50 Blood Blood Culture - Preliminary Gram Negative Bacillus 1 Resulted 11/23/16 04:20 Urine,Clean Catch Urine Culture - Preliminary Mixed Gram Positive Organism Resulted Laboratory Tests Test 11/25/16 07:40 White Blood Count 8.4 K/UL (4.8-10.8) Red Blood Count 3.80 M/UL (4.20-5.40) L Hemoglobin 11.4 G/DL (12.0-16.0) L Hematocrit 33.4 % (37.0-47.0) L Mean Corpuscular Volume 88 FL (80-99) Mean Corpuscular Hemoglobin 30.0 PG (27.0-31.0) Mean Corpuscular Hemoglobin Concent 34.2 G/DL (32.0-36.0) Red Cell Distribution Width 11.6 % (11.6-14.8) Platelet Count 269 K/UL (150-450) Mean Platelet Volume 7.9 FL (6.5-10.1) Neutrophils (%) (Auto) 66.9 % (45.0-75.0) Lymphocytes (%) (Auto) 20.4 % (20.0-45.0) Monocytes (%) (Auto) 11.2 % (1.0-10.0) H Eosinophils (%) (Auto) 0.4 % (0.0-3.0) Basophils (%) (Auto) 1.0 % (0.0-2.0) Sodium Level 133 mEQ/L (135-145) L Potassium Level 4.2 mEQ/L (3.4-4.9) Chloride Level 97 mEQ/L (98-107) L Carbon Dioxide Level 24 mEQ/L (20-30) Anion Gap 12 (5-15) Blood Urea Nitrogen 9 mg/dL (7-23) Creatinine 0.6 mg/dL (0.5-0.9) Estimat Glomerular Filtration Rate > 60 mL/min (>60) Glucose Level 300 mg/dL (74-106) H Calcium Level 8.2 mg/dL (8.6-10.2) L Thyroid Stimulating Hormone (TSH) 1.060 uIU/mL (0.300-4.500) Current Medications Medications (Trade) Dose Ordered Sig/Brisa Route PRN Reason Start Time Stop Time Status Last Admin Dose Admin Acetaminophen (Tylenol) 500 mg Q6H PRN ORAL Mild Pain/Temp > 100.5 11/23/16 11:00 12/23/16 10:59 11/24/16 18:59 Aztreonam 1 gm/ Dextrose 55 ml @ 110 mls/hr Q8HR IVPB 11/23/16 14:00 11/30/16 13:59 11/25/16 14:13 Dextrose (Dextrose 50%) STAT PRN IV Hypoglycemia 11/22/16 18:30 12/22/16 18:29 Docusate Sodium (Colace) 100 mg TWICE A DAY ORAL 11/24/16 13:45 12/24/16 13:44 11/25/16 10:24 Insulin Aspart (NovoLOG) BEFORE MEALS AND HS SUBQ 11/22/16 21:00 12/22/16 20:59 11/25/16 12:35 Insulin Detemir (Levemir) 15 units BID SUBQ 11/23/16 18:00 12/23/16 17:59 11/25/16 08:53 Morphine Sulfate (Morphine Sulfate) 2 mg Q4H PRN IVP Severe Pain (Pain Scale 7-10) 11/22/16 18:30 11/29/16 18:29 11/25/16 14:14 Ondansetron HCl (Zofran) 4 mg Q6H PRN IVP Nausea & Vomiting 11/22/16 18:30 12/22/16 18:29 Pantoprazole (Protonix) 40 mg DAILY ORAL 11/25/16 09:00 12/25/16 08:59 11/25/16 10:23 Sodium Chloride 1,000 ml @ 100 mls/hr Q10H IVLG 11/22/16 18:45 12/22/16 18:44 11/23/16 08:44 Jeanie Borjas M.D. Nov 25, 2016 16:56
[2016-11-25] MEDS: cefTRIAXone 2 GM in D5W 110 ML IVPB SCH (18:42)
[2016-11-25 20:00] VITALS: BP 137/76
[2016-11-26] VITALS: BP 121/79
[2016-11-26 04:00] VITALS: BP 120/81
[2016-11-26] MEDS: Morphine Sulfate 2mg/ml Inj IVP PRN ×4 (08:15→20:49)
[2016-11-26 08:17] VITALS: BP 115/72
[2016-11-26] MEDS: NovoLOG Insulin Flexpen SUBQ SCH ×5 (08:18→22:54)
[2016-11-26] MEDS: Docusate 100mg cap ORAL SCH ×2 (08:19→18:54)
[2016-11-26 11:24] VITALS: BP 123/78
--- NOTE | 2016-11-26 12:29 | Diagnostic Imaging Report ---
Indication:Elevated Bun and Creatinine. Technique: Grayscale and duplex Doppler imaging of the kidneys performed. Comparison: None Findings: The size, contour, and echogenicity of both kidneys are within normal limits. There are probable tiny cysts within the right kidney. The right kidney measures approximately 13 CM. Left kidney is 12.6 CM. There is no hydronephrosis. The IVC and urinary bladder are unremarkable. Impression: Small cysts suspected within the right kidney. Negative exam otherwise
[2016-11-26 15:18] VITALS: BP 121/79
--- NOTE | 2016-11-26 15:30 | Infectious Diseases Prog Note ---
Assessment/Plan Problems: (1) Pyelonephritis Assessment & Plan: with pansensitive E coli, will treat with ceftriaxon for 2 weeks, total, EOT 12/09/16 (2) Sepsis Assessment & Plan: with pansensitive E coli, , due to the above , on ceftriaxon for two weeks, repeated blood culture to confirm clearance is pending, EOT 12/09/16 (3) Hyperglycemia Assessment & Plan: due to sepsis, recommend tight glycemic control to keep blood glucose between 80-120 Subjective Constitutional: Reports: no symptoms HEENT: Reports: no symptoms Respiratory: Reports: no symptoms Breasts: Reports: no symptoms Cardiovascular: Reports: no symptoms Gastrointestinal/Abdominal: Reports: no symptoms Genitourinary: Reports: no symptoms Neurologic: Reports: no symptoms Psychiatric: Reports: no symptoms Skin: Reports: no symptoms Endocrine: Reports: no symptoms Hematologic: Reports: no symptoms Allergies: Coded Allergies: AMOXICILLIN (Verified Allergy, Unknown, 11/22/16) Objective Vital Signs Last 24 Hour Vital Signs Date Time Temp Pulse Resp B/P (MAP) Pulse Ox O2 Delivery O2 Flow Rate FiO2 11/26/16 15:18 98.2 87 18 121/79 99 Room Air 11/26/16 12:00 85 11/26/16 11:24 98.2 78 18 123/78 99 Room Air 11/26/16 08:17 99.5 86 18 115/72 100 Room Air 11/26/16 08:00 88 11/26/16 06:50 91 11/26/16 04:00 97.5 98 21 120/81 97 Room Air 11/26/16 00:00 98.6 101 20 121/79 96 Room Air 11/25/16 20:00 100 11/25/16 20:00 99.5 102 24 137/76 96 Room Air 11/25/16 16:00 99.5 94 21 123/46 97 Room Air 11/25/16 16:00 95 Height (Feet): 5 Height (Inches): 4.00 Weight (Pounds): 160 General Appearance: WD/WN, no acute distress HEENT: normocephalic, atraumatic, anicteric, mucous membranes moist, PERRL, EOMI, pharynx normal, supple, no JVD Respiratory/Chest: chest wall non-tender, lungs clear, normal breath sounds, no respiratory distress, no accessory muscle use Cardiovascular: normal peripheral pulses, normal rate, regular rhythm, no gallop/murmur, no JVD Abdomen: normal bowel sounds, soft, non tender, no organomegaly, non distended , no mass Extremities: no cyanosis, no clubbing Skin: no rash, no lesions Neurologic/Psychiatric: alert, oriented x 3, responsive Current Medications Medications (Trade) Dose Ordered Sig/Brisa Route PRN Reason Start Time Stop Time Status Last Admin Dose Admin Acetaminophen (Tylenol) 500 mg Q6H PRN ORAL Mild Pain/Temp > 100.5 11/23/16 11:00 12/23/16 10:59 11/24/16 18:59 Ceftriaxone Sodium 2 gm/ Dextrose 110 ml @ 220 mls/hr Q24H IVPB 11/25/16 18:00 12/02/16 17:59 11/25/16 18:42 Dextrose (Dextrose 50%) STAT PRN IV Hypoglycemia 11/22/16 18:30 12/22/16 18:29 Docusate Sodium (Colace) 100 mg TWICE A DAY ORAL 11/24/16 13:45 12/24/16 13:44 11/26/16 08:19 Insulin Aspart (NovoLOG) BEFORE MEALS AND HS SUBQ 11/22/16 21:00 12/22/16 20:59 11/26/16 12:30 Insulin Detemir (Levemir) 15 units BID SUBQ 11/23/16 18:00 12/23/16 17:59 11/25/16 21:29 Morphine Sulfate (Morphine Sulfate) 2 mg Q4H PRN IVP Severe Pain (Pain Scale 7-10) 11/22/16 18:30 11/29/16 18:29 11/26/16 12:23 Ondansetron HCl (Zofran) 4 mg Q6H PRN IVP Nausea & Vomiting 11/22/16 18:30 12/22/16 18:29 Pantoprazole (Protonix) 40 mg DAILY ORAL 11/25/16 09:00 12/25/16 08:59 11/26/16 08:18 Sodium Chloride 1,000 ml @ 100 mls/hr Q10H IVLG 11/22/16 18:45 12/22/16 18:44 11/26/16 12:23 Jeanie Borjas M.D. Nov 26, 2016 15:30
--- NOTE | 2016-11-26 15:38 | Nephrology Progress Note ---
Assessment/Plan Problem List: (1) Hyperglycemia (2) Pyelonephritis (3) Sepsis (4) UTI (urinary tract infection) Plan Abx per ID Strict glycemic control Monitor temp Monitor counts Continue diabetic diet Continue IVF Monitor lytes, correct prn Subjective Constitutional: Denies: no symptoms, chills, diaphoresis, fever, malaise, weakness, other HEENT: Denies: no symptoms, eye pain, blurred vision, tearing, double vision, ear pain, ear discharge, nose pain, nose congestion, throat pain, throat swelling, mouth pain, mouth swelling, other Genitourinary: Denies: no symptoms, burning, discharge, frequency, flank pain, hematuria, incontinence, pain, urgency, other Neurologic/Psychiatric: Denies: no symptoms, anxiety, depressed, emotional problems, headache, numbness, paresthesia, pre-existing deficit, seizure, tingling, tremors, weakness, other Subjective With family, in no apparent distress Objective Objective Last 24 Hour Vital Signs Date Time Temp Pulse Resp B/P (MAP) Pulse Ox O2 Delivery O2 Flow Rate FiO2 11/26/16 15:18 98.2 87 18 121/79 99 Room Air 11/26/16 12:00 85 11/26/16 11:24 98.2 78 18 123/78 99 Room Air 11/26/16 08:17 99.5 86 18 115/72 100 Room Air 11/26/16 08:00 88 11/26/16 06:50 91 11/26/16 04:00 97.5 98 21 120/81 97 Room Air 11/26/16 00:00 98.6 101 20 121/79 96 Room Air 11/25/16 20:00 100 11/25/16 20:00 99.5 102 24 137/76 96 Room Air 11/25/16 16:00 99.5 94 21 123/46 97 Room Air 11/25/16 16:00 95 Intake and Output 11/26/16 11/27/16 19:00 07:00 Intake Total 690 ml Balance 690 ml Intake Oral 690 ml # Voids 8 Height (Feet): 5 Height (Inches): 4.00 Weight (Pounds): 160 General Appearance: no apparent distress EENT: normal ENT inspection Neck: normal alignment, supple Cardiovascular: normal rate, regular rhythm, no JVD Respiratory/Chest: normal breath sounds, no respiratory distress Abdomen: soft, no organomegaly Extremities: non-tender, normal inspection Neurologic: alert, oriented x 3, responsive, normal mood/affect Tracy Birmingham N.P. Nov 26, 2016 15:38
[2016-11-26] MEDS: cefTRIAXone 2 GM in D5W 110 ML IVPB SCH (18:54)
[2016-11-26] MEDS: Levemir Flexpen SUBQ SCH (18:59)
[2016-11-26 20:00] VITALS: BP 134/78
[2016-11-26] MEDS: Heparin 5000 units/ml inj SUBQ SCH (20:52)
[2016-11-27 00:09] VITALS: BP 106/77
[2016-11-27 00:12] VITALS: BP 133/75
[2016-11-27] MEDS: Morphine Sulfate 2mg/ml Inj IVP PRN (02:20)
[2016-11-27 04:00] VITALS: BP 116/77
[2016-11-27] MEDS: NovoLOG Insulin Flexpen SUBQ SCH ×4 (07:26→12:54)
[2016-11-27 08:04] VITALS: BP 135/70
[2016-11-27 08:15] LABS: BASOPHILS % (AUTO) 1.5 % (0.0-2.0); EOSINOPHILS % (AUTO) 1.6 % (0.0-3.0); LYMPHOCYTES % (AUTO) 22.8 % (20.0-45.0); MEAN CORPUSCULAR HEMOGLOBIN 28.2 PG (27.0-31.0); MEAN CORPUSCULAR HGB CONC 30.7 G/DL (32.0-36.0); MEAN CORPUSCULAR VOLUME 92 FL (80-99); MEAN PLATELET VOLUME 6.8 FL (6.5-10.1); MONOCYTES % (AUTO) 8.7 % (1.0-10.0); NEUTROPHILS % (AUTO) 65.4 % (45.0-75.0); PLATELET COUNT 384 K/UL (150-450); RED BLOOD COUNT 3.98 M/UL (4.20-5.40); RED CELL DISTRIBUTION WIDTH 11.9 % (11.6-14.8); WHITE BLOOD COUNT 9.4 K/UL (4.8-10.8)
[2016-11-27] MEDS: Docusate 100mg cap ORAL SCH (08:33)
[2016-11-27] MEDS: Heparin 5000 units/ml inj SUBQ SCH (08:35)
[2016-11-27 08:45] LABS: ANION GAP 11 (5-15); CALCIUM 8.8 mg/dL (8.6-10.2); CARBON DIOXIDE 27 mEQ/L (20-30); CHLORIDE 103 mEQ/L (98-107); CREATININE 0.6 mg/dL (0.5-0.9); GLOMERULAR FILTRATION RATE > 60 mL/min (>60); HEMOLYSIS 0; POTASSIUM 3.9 mEQ/L (3.4-4.9); SODIUM 141 mEQ/L (135-145)
[2016-11-27] MEDS: Levemir Flexpen SUBQ SCH (08:46)
[2016-11-27 11:42] VITALS: BP 127/84
[2016-11-27] MEDS ORDERED: ROCEPHIN 11 GM/50 ML IVPB (12:19)
[2016-11-27] MEDS ORDERED: CEFTRIAXON2 GM/50 ML IV (12:20)
--- NOTE | 2016-11-27 15:45 | Infectious Diseases Prog Note ---
Assessment/Plan Problems: (1) Pyelonephritis Assessment & Plan: with pansensitive E coli, will treat with ceftriaxon for 2 weeks, total, EOT 12/09/16 (2) Sepsis Assessment & Plan: with pansensitive E coli, , due to the above , on ceftriaxon for two weeks, repeated blood culture to confirm clearance is negative , EOT 12/09/16 (3) Hyperglycemia Assessment & Plan: due to sepsis, recommend tight glycemic control to keep blood glucose between 80-120 Subjective Constitutional: Reports: no symptoms HEENT: Reports: no symptoms Respiratory: Reports: no symptoms Breasts: Reports: no symptoms Cardiovascular: Reports: no symptoms Gastrointestinal/Abdominal: Reports: no symptoms Genitourinary: Reports: no symptoms Neurologic: Reports: no symptoms Psychiatric: Reports: no symptoms Skin: Reports: no symptoms Endocrine: Reports: no symptoms Hematologic: Reports: no symptoms Allergies: Coded Allergies: AMOXICILLIN (Verified Allergy, Unknown, 11/22/16) Objective Vital Signs Last 24 Hour Vital Signs Date Time Temp Pulse Resp B/P (MAP) Pulse Ox O2 Delivery O2 Flow Rate FiO2 11/27/16 12:00 78 11/27/16 11:42 97.5 75 18 127/84 98 Room Air 11/27/16 08:04 96.4 88 18 135/70 100 Room Air 11/27/16 08:00 88 11/27/16 04:00 98.2 87 20 116/77 97 Room Air 11/27/16 04:00 79 11/27/16 00:12 98.2 90 20 133/75 96 Room Air 11/27/16 00:00 84 11/26/16 20:00 85 11/26/16 20:00 97.8 83 20 134/78 97 11/26/16 16:00 94 Height (Feet): 5 Height (Inches): 4.00 Weight (Pounds): 160 General Appearance: WD/WN, no acute distress HEENT: normocephalic, atraumatic, anicteric, mucous membranes moist Respiratory/Chest: chest wall non-tender, lungs clear, normal breath sounds, no respiratory distress, no accessory muscle use Cardiovascular: normal peripheral pulses, normal rate, regular rhythm, no gallop/murmur Abdomen: normal bowel sounds, soft, non tender, no organomegaly, non distended Extremities: no cyanosis, no clubbing Skin: no rash, no lesions, no ulcers Neurologic/Psychiatric: alert, oriented x 3 Musculoskeletal: no effusion Microbiology Date/Time Source Procedure Growth Status 11/25/16 17:20 Blood Blood Culture - Preliminary NO GROWTH AFTER 24 HOURS Resulted 11/25/16 17:15 Blood Blood Culture - Preliminary NO GROWTH AFTER 24 HOURS Resulted Laboratory Tests Test 11/27/16 07:50 White Blood Count 9.4 K/UL (4.8-10.8) Red Blood Count 3.98 M/UL (4.20-5.40) L Hemoglobin 11.2 G/DL (12.0-16.0) L Hematocrit 36.5 % (37.0-47.0) L Mean Corpuscular Volume 92 FL (80-99) Mean Corpuscular Hemoglobin 28.2 PG (27.0-31.0) Mean Corpuscular Hemoglobin Concent 30.7 G/DL (32.0-36.0) L Red Cell Distribution Width 11.9 % (11.6-14.8) Platelet Count 384 K/UL (150-450) Mean Platelet Volume 6.8 FL (6.5-10.1) Neutrophils (%) (Auto) 65.4 % (45.0-75.0) Lymphocytes (%) (Auto) 22.8 % (20.0-45.0) Monocytes (%) (Auto) 8.7 % (1.0-10.0) Eosinophils (%) (Auto) 1.6 % (0.0-3.0) Basophils (%) (Auto) 1.5 % (0.0-2.0) Sodium Level 141 mEQ/L (135-145) Potassium Level 3.9 mEQ/L (3.4-4.9) Chloride Level 103 mEQ/L (98-107) Carbon Dioxide Level 27 mEQ/L (20-30) Anion Gap 11 (5-15) Blood Urea Nitrogen 7 mg/dL (7-23) Creatinine 0.6 mg/dL (0.5-0.9) Estimat Glomerular Filtration Rate > 60 mL/min (>60) Glucose Level 181 mg/dL (74-106) H Calcium Level 8.8 mg/dL (8.6-10.2) Current Medications Medications (Trade) Dose Ordered Sig/Brisa Route PRN Reason Start Time Stop Time Status Last Admin Dose Admin Acetaminophen (Tylenol) 500 mg Q6H PRN ORAL Mild Pain/Temp > 100.5 11/23/16 11:00 12/23/16 10:59 11/24/16 18:59 Ceftriaxone Sodium 2 gm/ Dextrose 110 ml @ 220 mls/hr Q24H IVPB 11/25/16 18:00 12/02/16 17:59 11/26/16 18:54 Dextrose (Dextrose 50%) STAT PRN IV Hypoglycemia 11/22/16 18:30 12/22/16 18:29 Docusate Sodium (Colace) 100 mg TWICE A DAY ORAL 11/24/16 13:45 12/24/16 13:44 11/27/16 08:33 Heparin Sodium (Porcine) (Heparin 5000 units/ml) 5,000 units EVERY 12 HOURS SUBQ 11/26/16 21:00 12/26/16 20:59 11/27/16 08:35 Insulin Aspart (NovoLOG) BEFORE MEALS AND HS SUBQ 11/22/16 21:00 12/22/16 20:59 11/27/16 12:53 Insulin Aspart (NovoLOG) 8 units NOVOTIAC SUBQ 11/26/16 16:50 12/26/16 16:49 11/27/16 12:54 Insulin Detemir (Levemir) 15 units BID SUBQ 11/23/16 18:00 12/23/16 17:59 11/27/16 08:46 Morphine Sulfate (Morphine Sulfate) 2 mg Q4H PRN IVP Severe Pain (Pain Scale 7-10) 11/22/16 18:30 11/29/16 18:29 11/27/16 02:20 Ondansetron HCl (Zofran) 4 mg Q6H PRN IVP Nausea & Vomiting 11/22/16 18:30 12/22/16 18:29 Pantoprazole (Protonix) 40 mg DAILY ORAL 11/25/16 09:00 12/25/16 08:59 11/27/16 08:33 Sodium Chloride 1,000 ml @ 100 mls/hr Q10H IVLG 11/22/16 18:45 12/22/16 18:44 11/26/16 22:45 Jeanie Borjas M.D. Nov 27, 2016 15:45
[2016-11-27 16:00] VITALS: BP 132/88
[2016-11-27] MEDS ORDERED: Tubing IV Secondary IV ONE (17:29)
--- NOTE | 2016-11-28 11:31 | Discharge Summary ---
Discharge Summary Hospital Course Date of Admission Nov 22, 2016 at 14:17 Date of Discharge Nov 27, 2016 at 17:30 Admitting Diagnosis complex pyelonephritis, sepsis HPI Tyrone Quinones is a 31 year old female who was admitted on Nov 22, 2016 at 14: 17 for Complex Pyelonephritis,Sepsis Hospital Course [id number] Discharge Discharge Disposition Patient was discharged to Home with Home Health(06) Discharge Diagnoses: Marisa Malcolm NP Nov 28, 2016 11:31
--- NOTE | 2016-11-28 21:00 | Discharge Summary 2 SIG ---
DATE OF ADMISSION: 11/22/2016 DATE OF DISCHARGE: 11/27/2016 CARTOGRAPHIC TECHNICIAN: Jeanie Borjas M.D. Brief Hospital Course: The patient is a 31-year-old female, who presented to ED complaining of right-sided flank pain with increased dehydration. The patient felt weak over the past several days and had increased burning with urination. She has history of diabetes mellitus and has not taken her medications for several months. On evaluation at ED, glucose was elevated to 526. Lactic acid was 2.0. Anion gap of 21. Urine showed significant infection suspicious for pyelonephritis. She was given aggressive IV hydration and was started on IV antibiotics. She did not present with any obvious sign of acidosis and insulin drip was not started. She was initially tachycardic and suspicion for sepsis was considered. She was then admitted to telemetry for UTI, sepsis, and hyperglycemia. She was seen by Dr. Borjas. The patient is febrile, temperature of 101 degrees. She was given aztreonam empirically. Urine and blood culture showed growth of E. coli. Aztreonam was discontinued and was given ceftriaxone. Blood glucose was monitored. She was placed on diabetic diet with strict glycemic control and NovoLog sliding scale. Glucose improved. Stressed need for medication compliance. Repeat blood culture did not isolate any growth. She was eventually cleared for discharge to continue antibiotic for a total of two weeks. FINAL DIAGNOSES: 1. Sepsis due to pyelonephritis. 2. Pyelonephritis with Escherichia. coli. 3. Hyperglycemia. DISPOSITION: The patient was discharged home with home health. Discharge Medications: Refer to medication list. The patient to continue ceftriaxone 2 g IV daily for 14 days. Tylor Singh M.D. I have been assigned to dictate discharge summary on this account and I was not involved in the patient's management. Marisa Malcolm N.P. DR: MALIK JOB#: [id number] CC: MADDY
--- NOTE | 2016-12-14 17:39 | Cardiology Report ---
APPROVED REPORT EKG Measurement Heart [id number] Sinus tachycardia Nonspecific T wave abnormality Abnormal ECG
== END 2016-11-27 17:30 | disposition home health service (06) | DRG 720 ==
LOC: EMR 12:26 → 2E 14:17 → EDBEDREQ 16:31
DX: A41.9 Sepsis, unspecified organism (principal); E11.65 Type 2 diabetes mellitus with hyperglycemia; N10 Acute pyelonephritis; Z79.84 Long term (current) use of oral hypoglycemic drugs; Z88.1 Allergy status to other antibiotic agents; E86.0 Dehydration; B96.20 Unspecified Escherichia coli [E. coli] as the cause of diseases classified elsewhere; Z23 Encounter for immunization
CPT/HCPCS: 36415; 76775; 80048; 81001; 81003; 81025; 82947; 82962; 83605; 84443; 85007; 85025; 87040; 87086; 87181; 90630; 93005; 99285; G0378; J1815; S0077; S5561

== ENCOUNTER 2017-12-02 11:17 | Emergency (ER) | payer OTHER ==
[~2017-12-02] VITALS: Ht 162.6 cm; Wt 52.6 kg
[~2017-12-02 11:17] MED LIST: CEFTRIAXON2 GM/50 ML IV; GLIPIZIDE5 MG ORAL; METFORMIN HCL1000 M1 ORAL; ROCEPHIN 11 GM/50 ML IVPB
[2017-12-02] MEDS ORDERED: NKM (11:26)
[2017-12-02] MEDS ORDERED: LORazepam Inj 2mg/ml 1ml IV ONE (12:15)
[2017-12-02 12:45] LABS: HEMATOCRIT 46.3 % (37.0-47.0); LYMPHOCYTES % (AUTO) 33.3 % (20.0-45.0); MEAN CORPUSCULAR VOLUME 83 FL (80-99); MONOCYTES % (AUTO) 4.6 % (1.0-10.0); NEUTROPHILS % (AUTO) 60.2 % (45.0-75.0); PLATELET COUNT 304 K/UL (150-450); RED BLOOD COUNT 5.58 M/UL (4.20-5.40); RED CELL DISTRIBUTION WIDTH 11.8 % (11.6-14.8); WHITE BLOOD COUNT 10.1 K/UL (4.8-10.8)
[2017-12-02 12:55] LABS: ANION GAP 9 mmol/L (5-15); BLOOD UREA NITROGEN 8 mg/dL (7-18); CALCIUM 8.7 MG/DL (8.5-10.1); CARBON DIOXIDE 23 MMOL/L (21-32); CHLORIDE 100 MMOL/L (98-107); CREATININE 0.7 MG/DL (0.55-1.30); POTASSIUM 3.6 MMOL/L (3.5-5.1); SODIUM 132 MMOL/L (136-145)
[2017-12-02 13:01] LABS: ALANINE AMINOTRANSFERASE 22 U/L (12-78); ALBUMIN 3.2 G/DL (3.4-5.0); ALKALINE PHOSPHATASE 88 U/L (46-116); ASPARTATE AMINO TRANSFERASE 12 U/L (15-37); BILIRUBIN,TOTAL 0.5 MG/DL (0.2-1.0)
[2017-12-02] MEDS ORDERED: ALPRAZOLAM0.25 MG ORAL (13:22)
[2017-12-02 13:50] VITALS: BP 142/87
--- NOTE | 2017-12-02 14:23 | Emergency Room Report ---
History of Present Illness General Chief Complaint: General Complaint Source: Patient, Medical Record Present Illness HPI 32-year-old female presents ED complaining of shortness of breath, feeling anxious. States symptoms started this morning. Does not know what happened. States she's been under a lot of stress at work. Denies history of panic attacks. Denies alcohol or drug use. Denies chest pain. No other aggravating relieving factors. Denies any other associated symptoms Allergies: Coded Allergies: AMOXICILLIN (Verified Allergy, Unknown, 11/22/16) Patient History Past Medical History: DM Past Surgical History: none Pertinent Family History: none Social History: Denies: smoking, alcohol use, drug use Last Menstrual Period: 10/24/17 Now: No Immunizations: UTD Reviewed Nursing Documentation: PMH: Agreed; PSxH: Agreed Nursing Documentation-PMH Past Medical History: No Stated History Hx Diabetes: Yes Review of Systems All Other Systems: negative except mentioned in HPI Physical Exam Vital Signs Date Time Temp Pulse Resp B/P (MAP) Pulse Ox O2 Delivery O2 Flow Rate FiO2 12/02/17 11:18 97.6 87 20 150/92 100 Room Air 97.5 Sp02 EP Interpretation: reviewed, normal General Appearance: no apparent distress, alert, GCS 15, non-toxic Head: normocephalic, atraumatic Eyes: bilateral eye normal inspection, bilateral eye PERRL ENT: hearing grossly normal, normal pharynx, no angioedema, normal voice Neck: full range of motion, supple/symm/no masses Respiratory: chest non-tender, lungs clear, normal breath sounds, speaking full sentences Cardiovascular #1: regular rate, rhythm, no edema Cardiovascular #2: 2+ carotid (R), 2+ carotid (L), 2+ radial (R), 2+ radial (L) , 2+ dorsalis pedis (R), 2+ dorsalis pedis (L) Gastrointestinal: normal bowel sounds, non tender, soft, non-distended, no guarding, no rebound Rectal: deferred Genitourinary: normal inspection, no CVA tenderness Musculoskeletal: back normal, gait/station normal, normal range of motion, non- tender Neurologic: alert, oriented x3, responsive, motor strength/tone normal, sensory intact, speech normal Psychiatric: judgement/insight normal, memory normal, mood/affect normal, no suicidal/homicidal ideation, anxious Reflexes: 3+ bicep (R), 3+ bicep (L), 3+ tricep (R), 3+ tricep (L), 3+ knee (R) , 3+ knee (L) Skin: normal color, no rash, warm/dry, well hydrated Lymphatic: no adenopathy Medical Decision Making Diagnostic Impression: Primary Impression: Anxiety Additional Impression: Substance abuse ER Course Hospital Course 32 yo F presents with SOB, palpitations Differential diagnoses include: arryhtmia, dehydration, anxiety Clinical course Patient placed on stretcher. on cardiac monitor technician. After initial history and physical I ordered labs, EKG, IVFs and ativan labs reviewed- no leukocytosis, hemoglobin/hematocrit stable, electrolytes ok, Utox + Cocaine EKG - NSR, no acute ischemic changes interpreted by me On reassessment patient feeling better. I discuss the drug screen the patient. Patient denies using cocaine. Patient safe for discharge with close outpatient follow-up I. I feel this is a highly complex case requiring extensive working including EKG/Rhythm strip, Xray/CT/US, Blood/urine lab work, repeat exams while in ED, and administration of strong opiates/narcotics for pain control, admission to hospital or close patient follow up. Diagnosis - anxiety, substance abuse Stable and discharged to home with Rx Xanax. Followup with PMD. Return to ED if symptoms recur or worse Labs Test 12/02/17 12:15 White Blood Count 10.1 K/UL (4.8-10.8) Red Blood Count 5.58 M/UL (4.20-5.40) Hemoglobin 16.0 G/DL (12.0-16.0) Hematocrit 46.3 % (37.0-47.0) Mean Corpuscular Volume 83 FL (80-99) Mean Corpuscular Hemoglobin 28.7 PG (27.0-31.0) Mean Corpuscular Hemoglobin Concent 34.5 G/DL (32.0-36.0) Red Cell Distribution Width 11.8 % (11.6-14.8) Platelet Count 304 K/UL (150-450) Mean Platelet Volume 7.6 FL (6.5-10.1) Neutrophils (%) (Auto) 60.2 % (45.0-75.0) Lymphocytes (%) (Auto) 33.3 % (20.0-45.0) Monocytes (%) (Auto) 4.6 % (1.0-10.0) Eosinophils (%) (Auto) 1.0 % (0.0-3.0) Basophils (%) (Auto) 1.0 % (0.0-2.0) Sodium Level 132 MMOL/L (136-145) Potassium Level 3.6 MMOL/L (3.5-5.1) Chloride Level 100 MMOL/L (98-107) Carbon Dioxide Level 23 MMOL/L (21-32) Anion Gap 9 mmol/L (5-15) Blood Urea Nitrogen 8 mg/dL (7-18) Creatinine 0.7 MG/DL (0.55-1.30) Estimat Glomerular Filtration Rate > 60 mL/min (>60) Glucose Level 419 MG/DL (74-106) Calcium Level 8.7 MG/DL (8.5-10.1) Total Bilirubin 0.5 MG/DL (0.2-1.0) Aspartate Amino Transf (AST/SGOT) 12 U/L (15-37) Alanine Aminotransferase (ALT/SGPT) 22 U/L (12-78) Alkaline Phosphatase 88 U/L (46-116) Total Protein 6.4 G/DL (6.4-8.2) Albumin 3.2 G/DL (3.4-5.0) Globulin 3.2 g/dL Albumin/Globulin Ratio 1.0 (1.0-2.7) Salicylates Level 1.2 ug/mL (2.8-20) Urine Opiates Screen Negative (NEGATIVE) Acetaminophen Level < 2 MCG/ML (10-30) Urine Barbiturates Screen Negative (NEGATIVE) Phencyclidine (PCP) Screen Negative (NEGATIVE) Urine Amphetamines Screen Negative (NEGATIVE) Urine Benzodiazepines Screen Negative (NEGATIVE) Urine Cocaine Screen Positive (NEGATIVE) Urine Marijuana (THC) Screen Negative (NEGATIVE) Serum Alcohol < 3 mg/dL EKG Diagnostic Results Rate: normal Rhythm: NSR ST Segments: no acute changes ASA given to the pt in ED: No Rhythm Strip Diag. Results EP Interpretation: yes Rhythm: NSR, no PVC's, no ectopy Last Vital Signs Date Time Temp Pulse Resp B/P (MAP) Pulse Ox O2 Delivery O2 Flow Rate FiO2 12/02/17 11:18 97.6 87 20 150/92 100 Room Air 97.5 Status: improved Disposition: HOME, SELF-CARE Condition: Stable Scripts Alprazolam* (XANAX*) 0.25 Mg Tablet 0.25 MG ORAL TID PRN for For Anxiety, #15 TAB Prov: Guzman Cox MD 12/02/17 Referrals: NOT CHOSEN [facility]/,REFERRING (PCP) Patient Instructions: Panic Attacks, [id number] Guzman Cox MD Dec 02, 2017 14:23
--- NOTE | 2017-12-06 12:20 | Cardiology Report ---
APPROVED REPORT EKG Measurement Heart [id number] Normal sinus rhythm Nonspecific T wave abnormality Abnormal ECG
== END 2017-12-02 13:55 | disposition home or self-care (01) ==
LOC: EMR 13:40
DX: F41.9 Anxiety disorder, unspecified (principal); F19.10 Other psychoactive substance abuse, uncomplicated; E11.9 Type 2 diabetes mellitus without complications; Z88.0 Allergy status to penicillin
CPT/HCPCS: 36415; 80053; 80307; 85025; 93005; 96361; 96374; 99284; G0480; 80329

== ENCOUNTER 2018-04-25 06:12 | Emergency (ER) | payer OTHER ==
[~2018-04-25] VITALS: Ht 162.6 cm; Wt 71.2 kg
[~2018-04-25 06:12] MED LIST changes: +ALPRAZOLAM0.25 MG ORAL; +NKM
--- NOTE | 2018-04-25 06:30 | NUR ---
ED Nurse Note: Patient presents with complaints of abdominal pain radiating to the back 10/10 with more pain with deep breaths. labs drawn, iv started at left AC 20G.
[2018-04-25 06:45] VITALS: BP 147/81
--- NOTE | 2018-04-25 06:54 | Emergency Room Report ---
History of Present Illness General Chief Complaint: Abdominal Pain Source: Patient Present Illness HPI Patient presents with left upper quadrant abdominal pain ongoing for the past one day Denies any chest pain denies any vomiting or diarrhea Patient tried to drink water at bedside Patient reports that she is a diabetic however has not checked her glucose Denies any focal weakness denies any trauma There is some radiation from the left upper abdomen to the flank region Allergies: Coded Allergies: AMOXICILLIN (Verified Allergy, Unknown, 11/22/16) Patient History Past Medical History: see triage record Pertinent Family History: none Last Menstrual Period: mar Now: No : 3 Para: 3 Reviewed Nursing Documentation: PMH: Agreed; PSxH: Agreed Nursing Documentation-PMH Hx Diabetes: Yes Review of Systems All Other Systems: negative except mentioned in HPI Physical Exam Vital Signs Date Time Temp Pulse Resp B/P (MAP) Pulse Ox O2 Delivery O2 Flow Rate FiO2 04/25/18 06:19 99.1 114 20 147/81 96 Room Air Sp02 EP Interpretation: reviewed, normal General Appearance: mild distress - Patient laying sideways on the bed reports that laying and bending to the left decreases similar discomfort Head: normocephalic, atraumatic Eyes: bilateral eye PERRL, bilateral eye EOMI ENT: hearing grossly normal, normal pharynx, TMs + canals normal, uvula midline Neck: full range of motion, supple, no meningismus, no bony tend Respiratory: lungs clear, normal breath sounds, no rhonchi, no respiratory distress, no retraction, no accessory muscle use Cardiovascular #1: normal peripheral pulses, regular rate, rhythm, no edema, no gallop, no JVD, no murmur Gastrointestinal: normal bowel sounds, non tender, soft, no mass, no organomegaly, non-distended, no guarding, no hernia, no pulsatile mass, no rebound Genitourinary: no CVA tenderness Musculoskeletal: normal inspection Neurologic: oriented x3, responsive, site technician III-XII nml as tested, motor strength/ tone normal, sensory intact Psychiatric: mood/affect normal Skin: normal color, no rash, warm/dry, palpation normal Lymphatic: normal inspection, no adenopathy Medical Decision Making Diagnostic Impression: Primary Impression: Pyelonephritis Additional Impressions: Drug abuse Hyperglycemia ER Course Given the patient's presentation and complaints Accu-Chek was obtained Patient does have an elevated glucose therefore further extensive workup with consideration of DKA, pancreatitis initiated Patient's blood work shows elevated glucose however no obvious DKA patient also showed some evidence of UTI further hydration is provided patient is showing amphetamine positive white blood cell count is elevated raising differentials of possible amphetamine reaction versus pyelonephritis Patient is otherwise afebrile after extensive observation patient is trialed on oral intake is able to do so without any discomfort Patient reports that she is noncompliant with her diabetic medications At this time continues to improve further antibiotics prescribed for home and patient requires improved outpatient care Labs Test 04/25/18 06:35 04/25/18 07:00 White Blood Count 18.4 K/UL (4.8-10.8) Red Blood Count 5.01 M/UL (4.20-5.40) Hemoglobin 14.7 G/DL (12.0-16.0) Hematocrit 43.5 % (37.0-47.0) Mean Corpuscular Volume 87 FL (80-99) Mean Corpuscular Hemoglobin 29.3 PG (27.0-31.0) Mean Corpuscular Hemoglobin Concent 33.7 G/DL (32.0-36.0) Red Cell Distribution Width 11.7 % (11.6-14.8) Platelet Count 335 K/UL (150-450) Mean Platelet Volume 7.7 FL (6.5-10.1) Neutrophils (%) (Auto) % (45.0-75.0) Lymphocytes (%) (Auto) % (20.0-45.0) Monocytes (%) (Auto) % (1.0-10.0) Eosinophils (%) (Auto) % (0.0-3.0) Basophils (%) (Auto) % (0.0-2.0) Differential Total Cells Counted 100 Neutrophils % (Manual) 87 % (45-75) Lymphocytes % (Manual) 7 % (20-45) Monocytes % (Manual) 5 % (1-10) Eosinophils % (Manual) 1 % (0-3) Basophils % (Manual) 0 % (0-2) Band Neutrophils 0 % (0-8) Platelet Estimate Adequate Platelet Morphology Normal Red Blood Cell Morphology Normal Sodium Level 133 MMOL/L (136-145) Potassium Level 3.8 MMOL/L (3.5-5.1) Chloride Level 96 MMOL/L (98-107) Carbon Dioxide Level 28 MMOL/L (21-32) Anion Gap 9 mmol/L (5-15) Blood Urea Nitrogen 10 mg/dL (7-18) Creatinine 0.9 MG/DL (0.55-1.30) Estimat Glomerular Filtration Rate > 60 mL/min (>60) Glucose Level 514 MG/DL (74-106) Calcium Level 9.3 MG/DL (8.5-10.1) Total Bilirubin 0.6 MG/DL (0.2-1.0) Aspartate Amino Transf (AST/SGOT) 13 U/L (15-37) Alanine Aminotransferase (ALT/SGPT) 25 U/L (12-78) Alkaline Phosphatase 101 U/L (46-116) Total Protein 6.9 G/DL (6.4-8.2) Albumin 3.3 G/DL (3.4-5.0) Globulin 3.6 g/dL Albumin/Globulin Ratio 0.9 (1.0-2.7) Lipase 163 U/L (73-393) Urine Color Pale yellow Urine Appearance Clear Urine pH 6.5 (4.5-8.0) Urine Specific [place] 1.005 (1.005-1.035) Urine Protein Negative (NEGATIVE) Urine Glucose (UA) 4+ (NEGATIVE) Urine Ketones Negative (NEGATIVE) Urine Blood 5+ (NEGATIVE) Urine Nitrite Negative (NEGATIVE) Urine Bilirubin Negative (NEGATIVE) Urine Urobilinogen Normal MG/DL (0.0-1.0) Urine Leukocyte Esterase 2+ (NEGATIVE) Urine RBC 2-4 /HPF (0 - 2) Urine WBC 5-10 /HPF (0 - 2) Urine Squamous Epithelial Cells Moderate /LPF (NONE/OCC) Urine Bacteria Few /HPF (NONE) Urine HCG, Qualitative Negative (NEGATIVE) Urine Opiates Screen Negative (NEGATIVE) Urine Barbiturates Screen Negative (NEGATIVE) Phencyclidine (PCP) Screen Negative (NEGATIVE) Urine Amphetamines Screen Positive (NEGATIVE) Urine Benzodiazepines Screen Negative (NEGATIVE) Urine Cocaine Screen Negative (NEGATIVE) Urine Marijuana (THC) Screen Negative (NEGATIVE) Last Vital Signs Date Time Temp Pulse Resp B/P (MAP) Pulse Ox O2 Delivery O2 Flow Rate FiO2 04/25/18 06:45 114 20 Room Air 04/25/18 06:45 99.1 147/81 96 Status: improved Disposition: HOME, SELF-CARE Condition: Improved Scripts Trimethoprim/Sulfamethoxazole 160/800* (BACTRIM DS TABLET*) 1 Each Tablet 1 TAB ORAL Q12H, #20 TAB 0 Refills Prov: Josefa Li DO 04/25/18 Ibuprofen* (MOTRIN*) 600 Mg Tablet 600 MG ORAL Q8H PRN for For Pain, #20 TAB 0 Refills Prov: Josefa Li DO 04/25/18 Referrals: NOT CHOSEN [facility]/MD,REFERRING (PCP) Additional Instructions: Patient is provided with the discharge instructions notified to follow up with primary doctor in the next 2-3 days otherwise return to the er with any worsening symptoms. Please note that this report is being documented using [employer]AG[employer] technology. This can lead to erroneous entry secondary to incorrect interpretation by the dictating instrument. Josefa Li DO Apr 25, 2018 06:54
[2018-04-25] MEDS ORDERED: Insulin Human Regular 100units/ml 3ml IV ONE (07:00)
--- NOTE | 2018-04-25 07:05 | NUR ---
HAND-OFF: Report given to Zara GIRALDO.
[2018-04-25 07:10] LABS: HEMATOCRIT 43.5 % (37.0-47.0); HEMOGLOBIN 14.7 G/DL (12.0-16.0); MEAN CORPUSCULAR VOLUME 87 FL (80-99); PLATELET COUNT 335 K/UL (150-450); RED BLOOD COUNT 5.01 M/UL (4.20-5.40); RED CELL DISTRIBUTION WIDTH 11.7 % (11.6-14.8); WHITE BLOOD COUNT 18.4 K/UL (4.8-10.8)
[2018-04-25 07:11] LABS: APPEARANCE,URINE CLEAR; BILIRUBIN, URINE NEGATIVE (NEGATIVE); COLOR,URINE PALE YELLOW; GLUCOSE, URINE (UA) 4+ (NEGATIVE); KETONES,URINE NEGATIVE (NEGATIVE); LEUKOCYTE ESTERASE ,URINE 2+ (NEGATIVE); NITRITE,URINE NEGATIVE (NEGATIVE); PH,URINE 6.5 (4.5-8.0); PROTEIN,URINE NEGATIVE (NEGATIVE); UROBILINOGEN,URINE NORMAL MG/DL (0.0-1.0)
--- NOTE | 2018-04-25 07:11 | NUR ---
ED Nurse Note: Received report from ENZO Sharpe. Pt was given pain medications. Pt is tolerating it well. Will continue to monitor.
[2018-04-25 07:21] LABS: ALANINE AMINOTRANSFERASE 25 U/L (12-78); ALBUMIN 3.3 G/DL (3.4-5.0); ALBUMIN/GLOBULIN RATIO 0.9 (1.0-2.7); ALKALINE PHOSPHATASE 101 U/L (46-116); ANION GAP 9 mmol/L (5-15); ASPARTATE AMINO TRANSFERASE 13 U/L (15-37); BILIRUBIN,TOTAL 0.6 MG/DL (0.2-1.0); BLOOD UREA NITROGEN 10 mg/dL (7-18); CALCIUM 9.3 MG/DL (8.5-10.1); CARBON DIOXIDE 28 MMOL/L (21-32); CHLORIDE 96 MMOL/L (98-107); CREATININE 0.9 MG/DL (0.55-1.30); POTASSIUM 3.8 MMOL/L (3.5-5.1); SODIUM 133 MMOL/L (136-145)
[2018-04-25] MEDS ORDERED: LORazepam Inj 2mg/ml 1ml IV ONE (07:30)
[2018-04-25] MEDS ORDERED: cefTRIAXone 1 GM in NS 55 ML IVPB ONE (08:15)
[2018-04-25 08:56] VITALS: BP 121/72
[2018-04-25] MEDS ORDERED: IBUPROFEN600 MG ORAL (09:31)
[2018-04-25] MEDS ORDERED: BACTRIM DS TAB1 EAC1 ORAL (09:31)
[2018-04-25 09:39] VITALS: BP 102/52
--- NOTE | 2018-04-25 09:40 | NUR ---
ER DISCHARGE NOTE: Patient is cleared to be discharged per ERMD, pt is aox4, on room air, with stable vital signs. pt was given dc and prescription instructions, pt was able to verbalize understanding, pt id band and iv site removed without complications. pt is able to ambulate with steady gait. pt took all belongings.
== END 2018-04-25 09:39 | disposition home or self-care (01) ==
LOC: EMR 06:50
DX: N12 Tubulo-interstitial nephritis, not specified as acute or chronic (principal); F19.10 Other psychoactive substance abuse, uncomplicated; E11.65 Type 2 diabetes mellitus with hyperglycemia; Z88.0 Allergy status to penicillin
CPT/HCPCS: 36415; 80053; 80307; 81003; 81025; 82962; 83690; 85007; 85025; 96361; 96365; 96375; 99284; J0696; J1815